=== PATIENT | male | born 1955 | race Caucasian/White ===

== ENCOUNTER 2016-09-18 11:26 | Inpatient (IN) | payer MEDICAID, OTHER ==
[~2016-09-18] VITALS: Ht 182.9 cm; Wt 87.2 kg
[2016-09-18] MEDS ORDERED: WARF1 PO (11:43)
[2016-09-18] MEDS ORDERED: [UNRECOGNIZED DRUG - CODE] PO (11:43)
[2016-09-18] MEDS ORDERED: FURO20 PO (11:43)
[2016-09-18] MEDS ORDERED: DILT60 PO (11:43)
[2016-09-18] MEDS ORDERED: IPRAHFA IH (11:43)
[2016-09-18] MEDS ORDERED: ADV100 IH (11:43)
[2016-09-18] MEDS ORDERED: NITR.4 SL (11:43)
[2016-09-18] MEDS ORDERED: CLOP75 PO (11:43)
[2016-09-18] MEDS ORDERED: LISI-660 PO (11:43)
[2016-09-18] MEDS ORDERED: DILT240C93 PO (12:14)
[2016-09-18] MEDS ORDERED: ONDANSETRON HCL 4 MG/2 ML VIAL IVP ONE (12:15)
[2016-09-18] MEDS ORDERED: MORPHINE SULFATE 4 MG/ML SYRINGE IVP ONE (12:15)
[2016-09-18] MEDS ORDERED: NITROGLYCERIN 2% (1 GM=INCH) PACKET TP ONE (12:15)
[2016-09-18 13:00] LABS: BASOPHILS % (AUTO) 1.3 % (0.0-2.0); EOSINOPHILS % (AUTO) 3.7 % (1.0-6.0); HEMATOCRIT 35.4 % (41-53); HEMOGLOBIN 11.2 g/dL (13.5-17.5); LYMPHOCYTES # (AUTO) 1.5 K/uL (1.0-4.8); LYMPHOCYTES % (AUTO) 28.1 % (22.0-44.0); MEAN CORPUSCULAR HEMOGLOBIN 23.7 pg (26.0-34.0); MEAN CORPUSCULAR HGB CONC 31.5 G/dL (31.0-37.0); MEAN CORPUSCULAR VOLUME 75 fL (80-100); MONOCYTES # (AUTO) 0.5 K/uL (0.1-1.0); MONOCYTES % (AUTO) 9.7 % (2.0-9.0); NEUTROPHILS # (AUTO) 3.1 K/uL (1.8-7.7); NEUTROPHILS % (AUTO) 57.2 % (40.0-70.0); PLATELET COUNT (AUTO) 230 K/uL (150-450); RED BLOOD CELL COUNT(AUTO) 4.72 MIL/uL (4.50-5.90); RED CELL DISTRIBUTION WIDTH 20.6 % (11.5-14.5); WHITE BLOOD COUNT (AUTO) 5.5 K/uL (4.5-11.0)
[2016-09-18 13:09] LABS: B-TYPE NATRIURETIC PEPTIDE 14 pg/mL (0-100); PROTHROMBIN TIME 10.6 SEC (9.4-11.6)
[2016-09-18 13:10] LABS: ANION GAP 10 mmol/L (8-16); CALCIUM, TOTAL 8.3 mg/dL (8.8-10.5); CARBON DIOXIDE 25 mmol/L (22-29); CHLORIDE 106 mmol/L (98-107); GLOMERULAR FILTR. RATE CALC > 60 mL/min (>60); POTASSIUM 3.9 mmol/L (3.5-5.1); SODIUM SERUM 141 mmol/L (136-145); UREA NITROGEN, BLOOD 14 mg/dL (7-18)
[2016-09-18 13:14] LABS: RBC MORPHOLOGY COMMENT ABNORMAL RBC MORPH
[2016-09-18 13:16] LABS: ALANINE AMINOTRANSFERASE 55 U/L (12-78); ALBUMIN 3.4 g/dL (3.4-5.0); ASPARTATE AMINOTRANSFERASE 47 U/L (15-37); BILIRUBIN,TOTAL 0.3 mg/dL (0.1-1.0); CREATINE KINASE, TOTAL 46 U/L (39-308); TOTAL PROTEIN, SERUM 7.5 g/dL (6.4-8.2)
[2016-09-18 14:39] LABS: APPEARANCE,URINE CLEAR (CLEAR); GLUCOSE, URINE (UA) NEGATIVE (NEGATIVE); KETONES,URINE NEGATIVE (NEGATIVE); LEUKOCYTE ESTERASE ,URINE NEGATIVE (NEGATIVE); OCCULT BLOOD,URINE NEGATIVE (NEGATIVE); PH,URINE 6.5 (5.0-8.0); PROTEIN,URINE NEGATIVE (NEGATIVE)
[2016-09-18 14:40] LABS: ADD UA MICROSCOPIC NO
[2016-09-18] MEDS ORDERED: 0.9% SODIUM CHLORIDE 10 ML SYRINGE IVP PRN (14:45)
[2016-09-18] MEDS ORDERED: ACETAMINOPHEN 325 MG TABLET PO PRN ×2 (14:45→15:30)
[2016-09-18] MEDS ORDERED: ONDANSETRON HCL 4 MG/2 ML VIAL IVP PRN (14:45)
[2016-09-18] MEDS ORDERED: OxyCODONE HCL/ACETAMINOPHEN 5-325 MG TABLET PO PRN (15:30)
[2016-09-18] MEDS ORDERED: ALBUTEROL SULFATE 2.5 MG/0.5 ML NEB SOLUTION NEB PRN (15:30)
[2016-09-18] MEDS ORDERED: MAGNESIUM HYDROXIDE SUSPENSION 30 ML UDCUP PO PRN (15:30)
[2016-09-18] MEDS: MORPHINE SULFATE 2 MG/ML SYRINGE IVP PRN ×2 (16:07→20:54)
[2016-09-18 18:35] VITALS: BP 124/78
[2016-09-18 19:56] VITALS: BP 128/71
[2016-09-18] MEDS: DOCUSATE SODIUM 100 MG CAPSULE PO SCH (20:53)
[2016-09-18] MEDS: SIMVASTATIN 20 MG TABLET PO SCH (20:53)
[2016-09-18] MEDS: APIXABAN 2.5 MG TABLET PO SCH (20:53)
[2016-09-18] MEDS: CARVEDILOL 3.125 MG TABLET PO SCH (20:53)
[2016-09-18] MEDS ORDERED: 0.9% SODIUM CHLORIDE 5 ML NEB SOLUTION NEB ONE (22:42)
[2016-09-19] VITALS (7 sets, daily range): BP systolic 106–127; BP diastolic 50–87
[2016-09-19] MEDS: MORPHINE SULFATE 2 MG/ML SYRINGE IVP PRN ×5 (01:13→20:08)
[2016-09-19] MEDS: DOCUSATE SODIUM 100 MG CAPSULE PO SCH ×2 (08:02→20:07)
[2016-09-19] MEDS: CARVEDILOL 3.125 MG TABLET PO SCH ×2 (08:03→20:07)
[2016-09-19] MEDS: APIXABAN 2.5 MG TABLET PO SCH ×2 (08:03→20:07)
[2016-09-19] MEDS: PANTOPRAZOLE SODIUM 40 MG DR TABLET PO SCH (08:03)
[2016-09-19] MEDS: CLOPIDOGREL BISULFATE 75 MG TABLET PO SCH (08:03)
[2016-09-19 09:10] LABS: BASOPHILS % (AUTO) 1.2 % (0.0-2.0); EOSINOPHILS % (AUTO) 7.5 % (1.0-6.0); HEMATOCRIT 32.7 % (41-53); HEMOGLOBIN 10.4 g/dL (13.5-17.5); LYMPHOCYTES # (AUTO) 1.3 K/uL (1.0-4.8); LYMPHOCYTES % (AUTO) 33.9 % (22.0-44.0); MEAN CORPUSCULAR HEMOGLOBIN 23.6 pg (26.0-34.0); MEAN CORPUSCULAR HGB CONC 31.8 G/dL (31.0-37.0); MEAN CORPUSCULAR VOLUME 74 fL (80-100); MONOCYTES # (AUTO) 0.4 K/uL (0.1-1.0); MONOCYTES % (AUTO) 9.5 % (2.0-9.0); NEUTROPHILS # (AUTO) 1.8 K/uL (1.8-7.7); NEUTROPHILS % (AUTO) 47.9 % (40.0-70.0); PLATELET COUNT (AUTO) 213 K/uL (150-450); RED BLOOD CELL COUNT(AUTO) 4.41 MIL/uL (4.50-5.90); RED CELL DISTRIBUTION WIDTH 20.3 % (11.5-14.5); WHITE BLOOD COUNT (AUTO) 3.8 K/uL (4.5-11.0)
[2016-09-19 09:28] LABS: ALANINE AMINOTRANSFERASE 48 U/L (12-78); ANION GAP 8 mmol/L (8-16); ASPARTATE AMINOTRANSFERASE 36 U/L (15-37); BILIRUBIN,TOTAL 0.3 mg/dL (0.1-1.0); CALCIUM, TOTAL 7.9 mg/dL (8.8-10.5); CARBON DIOXIDE 24 mmol/L (22-29); CHLORIDE 110 mmol/L (98-107); CREATININE 0.73 mg/dL (0.60-1.30); GLOMERULAR FILTR. RATE CALC > 60 mL/min (>60); POTASSIUM 3.8 mmol/L (3.5-5.1); SODIUM SERUM 142 mmol/L (136-145); TOTAL PROTEIN, SERUM 6.5 g/dL (6.4-8.2); UREA NITROGEN, BLOOD 10 mg/dL (7-18)
[2016-09-19 10:36] LABS: RBC MORPHOLOGY COMMENT ABNORMAL RBC MORPH
[2016-09-19] MEDS: SIMVASTATIN 20 MG TABLET PO SCH (20:07)
[2016-09-19] MEDS ORDERED: PENTETATE DTPA TC99M/MCL ISOTOPE 1 EA INJ INJ ONE (20:55)
[2016-09-19] MEDS ORDERED: MAA ALBUMIN AGGREGATED TC99M/UD<10MCL ISOTOPE 1 EA INJ INJ ONE (21:05)
[2016-09-20] MEDS: MORPHINE SULFATE 2 MG/ML SYRINGE IVP PRN (03:44)
[2016-09-20 03:45] VITALS: BP 115/70
[2016-09-20 07:36] VITALS: BP 99/63
[2016-09-20] MEDS: APIXABAN 2.5 MG TABLET PO SCH (08:54)
[2016-09-20] MEDS: CLOPIDOGREL BISULFATE 75 MG TABLET PO SCH (08:54)
[2016-09-20] MEDS: PANTOPRAZOLE SODIUM 40 MG DR TABLET PO SCH (08:54)
[2016-09-20] MEDS: DOCUSATE SODIUM 100 MG CAPSULE PO SCH (08:54)
[2016-09-20] MEDS: CARVEDILOL 3.125 MG TABLET PO SCH (08:54)
[2016-09-20 09:30] VITALS: BP 118/71
== END 2016-09-20 10:59 | disposition left against medical advice (07) | DRG 144 ==
LOC: EMS 11:28 → 5S 16:44
PROVIDERS: ADMIT Internal Medicine; ATTEND Internal Medicine
DX: R09.1 Pleurisy (principal); G31.9 Degenerative disease of nervous system, unspecified; I49.5 Sick sinus syndrome; I48.0 Paroxysmal atrial fibrillation; I10 Essential (primary) hypertension; J44.9 Chronic obstructive pulmonary disease, unspecified; R55 Syncope and collapse; I25.2 Old myocardial infarction; E78.5 Hyperlipidemia, unspecified; K92.1 Melena; M62.58 Muscle wasting and atrophy, not elsewhere classified, other site; I25.10 Atherosclerotic heart disease of native coronary artery without angina pectoris; Z88.2 Allergy status to sulfonamides; Z88.8 Allergy status to other drugs, medicaments and biological substances; Z88.1 Allergy status to other antibiotic agents; Z88.0 Allergy status to penicillin; Z91.013 Allergy to seafood; Z91.041 Radiographic dye allergy status; Z79.01 Long term (current) use of anticoagulants; Z79.02 Long term (current) use of antithrombotics/antiplatelets; Z79.899 Other long term (current) drug therapy; Z79.51 Long term (current) use of inhaled steroids; Z98.890 Other specified postprocedural states; Z90.79 Acquired absence of other genital organ(s); Z76.5 Malingerer [conscious simulation]; Z85.47 Personal history of malignant neoplasm of testis; Z85.46 Personal history of malignant neoplasm of prostate; Z95.5 Presence of coronary angioplasty implant and graft; Z85.028 Personal history of other malignant neoplasm of stomach; Z92.21 Personal history of antineoplastic chemotherapy; Z92.3 Personal history of irradiation; Z86.73 Personal history of transient ischemic attack (TIA), and cerebral infarction without residual deficits
CPT/HCPCS: 70450; 78582; 93005; 93306; 94640; 96374; 96375; 99285; A9539; A9540; J2270; J2405